=== PATIENT | male | born 1960 | race Caucasian/White ===

== ENCOUNTER 2016-10-29 15:53 | Emergency (ER) | payer OTHER ==
[~2016-10-29] VITALS: Ht 177.8 cm; Wt 84.4 kg
[~2016-10-29 15:53] MED LIST: /ONDA4TA PO; /WARF5TA PO; CARA1TAB2 PO; CIPR500T89 PO; LOPR50TA PO; METO50TA4 OR; PRIL20CA OR; VICOBULK PO
[2016-10-29 15:55] VITALS: BP 143/84
[2016-10-29] MEDS ORDERED: ATOR1TAB21 PO (16:02)
[2016-10-29] MEDS ORDERED: METO25TA74 PO (16:02)
== END 2016-10-29 16:48 | disposition home or self-care (01) ==
LOC: M ED 16:16
DX: H53.9 Unspecified visual disturbance (principal); I10 Essential (primary) hypertension

== ENCOUNTER 2017-12-19 07:31 | Day surgery (SDC) | payer OTHER ==
[2017-12-19] MEDS ORDERED: MIDAZOLAM INJ 2 MG/2 ML VIAL (J2250) As Ordered (07:32)
[2017-12-19] MEDS ORDERED: fentaNYL 100 MCG/2 ML INJECTION (J3010) As Ordered (07:32)
[2017-12-19] MEDS: PROPARACAINE 0.5% OPHTH SOL 15ML OD (08:00)
[2017-12-19] MEDS: OFLOXACIN 0.3 % (OCUFLOX) OPTH SOL 5ML OD (08:00)
[2017-12-19] MEDS: PHENYLEPHRINE 2.5% OPHTH SOL 2ML OD (08:00)
[2017-12-19] MEDS: TROPICAMIDE 1% OPHTH SOLN 2ML OD (08:00)
[2017-12-19] MEDS: POVIDONE-IODINE 5% OPHTH PREP SOL 30ML As Ordered (10:18)
[2017-12-19] MEDS: DUOVISC (0.50ML VISCOAT/0.55ML PROVISC) OPHTH KIT As Ordered (10:18)
[2017-12-19] MEDS: CEFUROXIME 1MG/0.1ML INTRACAMERAL INJ As Ordered (10:18)
[2017-12-19] MEDS: BALANCED SALT IRRIGATION SOLUTION 500ML BAG (FOR OR EYE MACHINE) As Ordered (10:18)
[2017-12-19] MEDS: LIDOCAINE 0.75%/EPINEPHRINE 0.025% IN BSS 1ML SYR INTRACAMERAL (OR ONLY) As Ordered (10:18)
== END 2017-12-19 11:05 | disposition home or self-care (01) ==
LOC: M SDC 07:31
DX: H25.11 Age-related nuclear cataract, right eye (principal); E78.00 Pure hypercholesterolemia, unspecified; I10 Essential (primary) hypertension; K21.9 Gastro-esophageal reflux disease without esophagitis; Z79.82 Long term (current) use of aspirin; Z79.899 Other long term (current) drug therapy
CPT/HCPCS: 66984

== ENCOUNTER → 2018-06-09 | Outpatient (CLI) | payer OTHER ==
[~2018-06-09] MED LIST changes: +ASPI1TAB PO; +ATOR1TAB21 PO; +METO1TAB32 PO
--- NOTE | 2018-06-09 16:57 | REP ---
KUB, ONE VIEW: HISTORY: Tenderness. A small amount of air is present in the intestine. There are no air fluid levels or dilated loops of intestine. There is no pneumoperitoneum. Surgical clips are present in the right upper quadrant and pelvis. IMPRESSION:Nonspecific bowel gas pattern. Electronically Signed by Jonathan Tee MD 06/09/2018 05:03 P
[2018-06-09 17:25] LABS: ALBUMIN 4.2 GM/DL (3.2-5.2); ALT/SGPT 59 U/L (12-78); AMYLASE 85 U/L (25-115); BILIRUBIN,TOTAL 0.3 MG/DL (0.2-1.0); BLOOD UREA NITROGEN 16 MG/DL (7-18); CALCIUM LEVEL 9.1 MG/DL (8.8-10.2); CARBON DIOXIDE LEVEL 27 MEQ/L (21-32); CHLORIDE LEVEL 103 MEQ/L (98-107); CREATININE FOR GFR 0.96 MG/DL (0.70-1.30); FREE T4 0.86 NG/DL (0.76-1.46); GLOMERULAR FILTRATION RATE > 60.0 (>49); GLUCOSE, FASTING 90 MG/DL (70-100); LIPASE 98 U/L (73-393); POTASSIUM SERUM 4.2 MEQ/L (3.5-5.1); SODIUM LEVEL 140 MEQ/L (136-145); TOTAL PROTEIN 7.5 GM/DL (6.4-8.2)
[2018-06-09 17:29] LABS: BASO # 0.1 10^3/uL (0.0-0.2); BASO % 0.7 % (0.0-1.0); EOS # 0.2 10^3/uL (0.0-0.50); EOS % 1.6 % (0.0-3.0); HEMATOCRIT 42.9 % (42.0-52.0); LYMPH # 1.8 10^3/uL (1.5-4.5); LYMPH % 18.7 % (24.0-44.0); MEAN CORPUSCULAR HEMOGLOBIN 28.3 pg (27.0-33.0); MEAN CORPUSCULAR HGB CONC 32.6 g/dl (32.0-36.5); MEAN CORPUSCULAR VOLUME 86.7 fl (80.0-96.0); MONO # 0.7 10^3/uL (0.0-0.8); MONO % 7.5 % (0.0-5.0); NEUTROPHILS # 6.7 10^3/uL (1.8-7.7); NEUTROPHILS % 71.3 % (36.0-66.0); PLATELET COUNT, AUTOMATED 267 10^3/uL (150-450); RED BLOOD COUNT 4.95 10^6/uL (4.30-6.10); WHITE BLOOD COUNT 9.4 10^3/uL (4.0-10.0)
== END ==
LOC: M WUC 11:57
PROVIDERS: ATTEND Physician Assistant
DX: R10.814 Left lower quadrant abdominal tenderness (principal)

== ENCOUNTER 2018-07-04 17:28 | Emergency (ER) | payer BC ==
[~2018-07-04] VITALS: Ht 177.8 cm; Wt 88.6 kg
[~2018-07-04 17:28] MED LIST changes: -CIPR-249 PO
[2018-07-04] MEDS ORDERED: NS 1,000 ML IV SCH (18:05)
[2018-07-04] MEDS ORDERED: ONDANSETRON 4MG/2ML VIAL (J2405) IV ONE (18:15)
[2018-07-04] MEDS ORDERED: GASTROGRAFIN SOLUTION 30ML (Q9963) As Ordered ONE (18:36)
[2018-07-04] MEDS: GASTROGRAFIN SOLUTION 30ML PO SCH ×2 (18:40→19:47)
[2018-07-04 18:45] LABS: BASO # 0.1 10^3/uL (0.0-0.2); BASO % 0.6 % (0.0-1.0); EOS # 0.3 10^3/uL (0.0-0.50); HEMATOCRIT 40.7 % (42.0-52.0); HEMOGLOBIN 13.4 g/dl (13.5-17.5); LYMPH # 2.3 10^3/uL (1.5-4.5); LYMPH % 16.7 % (24.0-44.0); MEAN CORPUSCULAR HEMOGLOBIN 28.3 pg (27.0-33.0); MEAN CORPUSCULAR HGB CONC 32.9 g/dl (32.0-36.5); MONO # 1.2 10^3/uL (0.0-0.8); MONO % 8.4 % (0.0-5.0); NEUTROPHILS # 9.9 10^3/uL (1.8-7.7); PLATELET COUNT, AUTOMATED 290 10^3/uL (150-450); RED BLOOD COUNT 4.73 10^6/uL (4.30-6.10); WHITE BLOOD COUNT 13.8 10^3/uL (4.0-10.0)
[2018-07-04 19:00] LABS: INR 0.93; PROTHROMBIN TIME 12.6 SECONDS (12.1-14.4)
[2018-07-04 19:16] LABS: ALT/SGPT 49 U/L (12-78); BLOOD UREA NITROGEN 15 MG/DL (7-18); CALCIUM LEVEL 8.5 MG/DL (8.8-10.2); CARBON DIOXIDE LEVEL 27 MEQ/L (21-32); CHLORIDE LEVEL 105 MEQ/L (98-107); CREATININE FOR GFR 0.87 MG/DL (0.70-1.30); GLOMERULAR FILTRATION RATE > 60.0 (>49); GLUCOSE, FASTING 91 MG/DL (70-100); POTASSIUM SERUM 4.2 MEQ/L (3.5-5.1); SODIUM LEVEL 138 MEQ/L (136-145)
[2018-07-04 19:17] LABS: BILIRUBIN,DIRECT < 0.1 MG/DL (0.0-0.2); BILIRUBIN,TOTAL 0.3 MG/DL (0.2-1.0); LIPASE 95 U/L (73-393); TOTAL PROTEIN 7.1 GM/DL (6.4-8.2)
[2018-07-04] MEDS ORDERED: ISOVUE-370 76% 100ML VIAL (Q9967) As Ordered ONE (19:58)
--- NOTE | 2018-07-04 20:47 | REPVR ---
EXAM: CT Abdomen and Pelvis With Contrast EXAM DATE/TIME: 07/04/2018 8:12 PM CLINICAL HISTORY: 58 years old, male; Pain; Abdominal pain; Acute; Additional info: Rlq stranding? TECHNIQUE: Axial computed tomography images of the abdomen and pelvis with intravenous contrast. All CT scans at this facility use at least one of these dose optimization techniques: automated exposure control; mA and/or kV adjustment per patient size (includes targeted exams where dose is matched to clinical indication); or iterative reconstruction. Coronal and sagittal reformatted images were created and reviewed. CONTRAST: 100 ml of ISOVUE 370 administered intravenously. COMPARISON: CT ABD PELVIS W/O CONTRAST 07/04/2018 11:08 AM FINDINGS: Lower thorax: No acute findings. ABDOMEN: Liver: There is a diffuse decrease in hepatic parenchymal density, consistent with fatty infiltration. Gallbladder and bile ducts: There has been a cholecystectomy. Pancreas: Normal. No ductal dilation. Spleen: Normal. No splenomegaly. Adrenals: Normal. No mass. Kidneys and ureters: Normal. No hydronephrosis. Stomach and bowel: Normal. No obstruction. No mucosal thickening. Appendix: Curvilinear density demonstrated within the appendix stable in appearance comparison to the prior noncontrast examination. Finding may represent calcification or inspissated oral contrast media. No inflammation. PELVIS: Bladder: Unremarkable as visualized. Reproductive: Unremarkable as visualized. ABDOMEN and PELVIS: Intraperitoneal space: Normal. No free air. No significant fluid collection. Bones/joints: No acute fracture. No dislocation. Soft tissues: Unremarkable. Vasculature: The aorta demonstrates mild atherosclerotic calcification. Lymph nodes: Normal. No enlarged lymph nodes. IMPRESSION: 1. There is a diffuse decrease in hepatic parenchymal density, consistent with fatty infiltration. 2. There has been a cholecystectomy. Electronically signed by: Flynn Avalos On 07/04/2018 20:46:44 PM
[2018-07-04] MEDS ORDERED: CIPR-249 PO (21:06)
[2018-07-04 21:15] VITALS: BP 134/69
== END 2018-07-04 21:24 | disposition home or self-care (01) ==
LOC: M ED 17:28
DX: R10.9 Unspecified abdominal pain (principal); I10 Essential (primary) hypertension; E78.5 Hyperlipidemia, unspecified; K21.9 Gastro-esophageal reflux disease without esophagitis; Z79.82 Long term (current) use of aspirin; Z79.899 Other long term (current) drug therapy
CPT/HCPCS: 74177; 80048; 80076; 81001; 83690; 85025; 85610; 96374; 99284; J2405; Q9967

== ENCOUNTER → 2018-07-04 | Outpatient (CLI) | payer BC ==
[~2018-07-04] MED LIST changes: +CIPR-249 PO
--- NOTE | 2018-07-04 11:57 | REP ---
CT ABDOMEN PELVIS WITHOUT IV OR ORAL CONTRAST: HISTORY: Flank pain. Microscopic hematuria. Comparison CT study is from August 12, 2012. CT FINDINGS: Digital preliminary kitchen hand radiograph demonstrates an unremarkable bowel gas pattern. There are clips in the right upper quadrant. The lung bases are clear on axial CT images. The liver and the spleen are normal in size homogeneous in texture. Gallbladder is surgically absent. No adrenal lesion is seen. No pancreatic abnormalities observed. There is no evidence of intrarenal nephrolithiasis. No hydronephrosis is seen. Vascular calcification is seen in the aorta which is ectatic but non-aneurysmal, AP dimension is 2.4 cm. There is some opaque ingested material in the lumen of the appendix. The appendix is 8-9 mm in diameter. There is very subtle haziness in the periappendiceal fat. No fluid collection or ascites is seen. The opaque content may be old CT barium. There are one or two dystrophic calcifications in the prostate gland. Urinary bladder is intact. No abdominal wall defect is seen. There is diverticulosis affecting the left colon mild in degree. No CT evidence of diverticulitis. IMPRESSION: Status post cholecystectomy. No urinary tract calculus or hydronephrosis seen. Slightly prominent appendix filled with opaque luminal content, question old CT barium. Faint periappendiceal stranding. Difficult to exclude early appendicitis. Electronically Signed by Marcos Cervantes MD 07/04/2018 03:35 P
== END ==
LOC: M RAD 10:53
PROVIDERS: ATTEND Student in an Organized Health Care Education/Training Program
DX: R31.29 Other microscopic hematuria (principal); R10.9 Unspecified abdominal pain

== ENCOUNTER → 2018-07-10 | Outpatient (CLI) | payer BC ==
[~2018-07-10] MED LIST changes: +CIPR-249 PO
== END ==
LOC: M SMT 13:55
PROVIDERS: ATTEND Nurse Practitioner Women's Health
DX: Z12.5 Encounter for screening for malignant neoplasm of prostate (principal)
CPT/HCPCS: 36415; G0103

== ENCOUNTER → 2018-09-04 | Outpatient (CLI) | payer BC ==
[~2018-09-04] MED LIST changes: -/ONDA4TA PO; -/WARF5TA PO; -ASPI1TAB PO; +ASPI81TA26 PO; +COUM1TAB17 PO; +ONDA-1 PO
--- NOTE | 2018-09-05 01:46 | REP ---
Clinical: Right-sided rib pain with prior fall Technique: Four views of the right hemithorax. Findings: Four views of the right hemithorax demonstrates no obvious acute rib fracture or pathology. Impression: Normal right rib series Electronically Signed by Westley James MD 09/05/2018 01:38 A
--- NOTE | 2018-09-05 02:30 | REP ---
Clinical: thoracic pain. Technique: AP, lateral, and swimmers views. Findings: Alignment and kyphosis is maintained. There is no evidence for acute fracture / compression injury or subluxation. Mild/moderate multilevel degenerative changes include endplate sclerosis with minimal disc space narrowing and marginal osteophyte formation. Impression: Mild multilevel degenerative changes. Electronically Signed by Westley James MD 09/05/2018 02:22 A
== END ==
LOC: M WUC 16:08
PROVIDERS: ATTEND Student in an Organized Health Care Education/Training Program
DX: M51.34 Other intervertebral disc degeneration, thoracic region (principal)

== ENCOUNTER 2018-09-16 15:26 | Emergency (ER) | payer BC ==
[~2018-09-16] VITALS: Ht 177.8 cm; Wt 88.2 kg
[2018-09-16] MEDS ORDERED: NS 500 ML IV ONE (16:00)
[2018-09-16] MEDS ORDERED: ASPIRIN 81 MG CHEW TABLET PO ONE (16:00)
[2018-09-16 16:14] LABS: BASO # 0.1 10^3/uL (0.0-0.2); BASO % 0.9 % (0.0-1.0); EOS # 0.3 10^3/uL (0.0-0.50); EOS % 3.4 % (0.0-3.0); HEMATOCRIT 39.8 % (42.0-52.0); HEMOGLOBIN 13.3 g/dl (13.5-17.5); LYMPH # 2.1 10^3/uL (1.5-4.5); LYMPH % 23.2 % (24.0-44.0); MEAN CORPUSCULAR HEMOGLOBIN 28.9 pg (27.0-33.0); MEAN CORPUSCULAR HGB CONC 33.4 g/dl (32.0-36.5); MEAN CORPUSCULAR VOLUME 86.3 fl (80.0-96.0); MONO # 0.7 10^3/uL (0.0-0.8); MONO % 7.9 % (0.0-5.0); NEUTROPHILS # 5.7 10^3/uL (1.8-7.7); NEUTROPHILS % 64.2 % (36.0-66.0); PLATELET COUNT, AUTOMATED 264 10^3/uL (150-450); RED BLOOD COUNT 4.61 10^6/uL (4.30-6.10); WHITE BLOOD COUNT 8.9 10^3/uL (4.0-10.0)
[2018-09-16 17:29] LABS: ALBUMIN 3.7 GM/DL (3.2-5.2); ALT/SGPT 49 U/L (12-78); BILIRUBIN,DIRECT 0.1 MG/DL (0.0-0.2); BILIRUBIN,TOTAL 0.2 MG/DL (0.2-1.0); BLOOD UREA NITROGEN 17 MG/DL (7-18); CALCIUM LEVEL 8.5 MG/DL (8.8-10.2); CARBON DIOXIDE LEVEL 27 MEQ/L (21-32); CHLORIDE LEVEL 107 MEQ/L (98-107); CPK CREATINE PHOSPHOKINASE 147 U/L (39-308); CREATININE FOR GFR 1.02 MG/DL (0.70-1.30); FREE T4 0.88 NG/DL (0.76-1.46); GLOMERULAR FILTRATION RATE > 60.0 (>49); GLUCOSE, FASTING 114 MG/DL (70-100); LIPASE 120 U/L (73-393); SODIUM LEVEL 141 MEQ/L (136-145); TOTAL PROTEIN 7.4 GM/DL (6.4-8.2); TROPONIN I < 0.02 NG/ML (< 0.10)
[2018-09-16] MEDS ORDERED: ISOVUE-370 76% 100ML VIAL (Q9967) As Ordered ONE (17:40)
--- NOTE | 2018-09-16 18:26 | REP ---
CHEST: Single view. There is no evidence of acute infiltrate. No pleural effusion is seen. The heart is normal in size. The mediastinal silhouette is unremarkable. The visualized osseous structures are intact. IMPRESSION: No acute pulmonary disease. Electronically Signed by Jose D Duff MD 09/17/2018 10:32 A
[2018-09-16 19:00] VITALS: BP 143/69
--- NOTE | 2018-09-16 23:23 | ECGEPIP ---
Stationary ECG Study 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
--- NOTE | 2018-09-17 08:29 | REP ---
CT pulmonary angiogram: With IV contrast. History: Pain. Rule out pulmonary embolus. Comparison studies: Comparison is made with today's chest x-ray. Contrast dose: 75 ML of Isovue [address] technique: Helical scanning is acquired and overlapping 1.5 mm and contiguous 3 mm axial images are reformatted. In addition, maximum intensity projection and multiplanar re-formation images are generated in sagittal and coronal imaging projections. CT pulmonary angiographic findings: There is good opacification of the pulmonary arterial tree. There is no CT evidence of pulmonary embolism. The thoracic aorta enhances homogeneously and is normal in course and caliber. No aneurysm or dissection is appreciated. There is a small amount of left coronary artery vascular calcification and aortic calcification. No pleural or pericardial effusion is seen. No hilar or mediastinal mass or adenopathy is observed. Maximal intensity projection images show no vessel cutoff or filling defect. No significant pulmonary nodule or mass lesion is seen. No bony destructive lesion is appreciated. There are clips in right upper quadrant post cholecystectomy. The no adrenal lesion is observed. Impression: No CT evidence of pulmonary embolus. No active cardiopulmonary disease. Electronically Signed by Marcos Cervantes MD 09/17/2018 09:17 A
== END 2018-09-16 19:15 | disposition home or self-care (01) ==
LOC: M ED 15:26
DX: S23.41XA Sprain of ribs, initial encounter (principal); X58.XXXA Exposure to other specified factors, initial encounter; Y92.89 Other specified places as the place of occurrence of the external cause; I10 Essential (primary) hypertension; E78.5 Hyperlipidemia, unspecified; Z79.899 Other long term (current) drug therapy; Z79.82 Long term (current) use of aspirin; Z87.891 Personal history of nicotine dependence
CPT/HCPCS: 36415; 71045; 71275; 80048; 80076; 82550; 82553; 83690; 84439; 84443; 84484; 85025; 93005; 93041; 94760; 96360; 99285; Q9967

== ENCOUNTER → 2018-09-16 | Outpatient (CLI) | payer BC ==
--- NOTE | 2018-09-16 12:39 | REP ---
Chest two views HISTORY: Chest pain Comparison: 08/15/2012 The lungs are clear. The heart is normal in size. The pulmonary vasculature is normal in appearance. The bony structure is intact. IMPRESSION: No acute disease. Electronically Signed by Jonathan Tee MD 09/16/2018 12:31 P
[2018-09-16 13:42] LABS: BASO # 0.1 10^3/uL (0.0-0.2); BASO % 0.8 % (0.0-1.0); EOS # 0.2 10^3/uL (0.0-0.50); EOS % 2.9 % (0.0-3.0); HEMATOCRIT 41.8 % (42.0-52.0); HEMOGLOBIN 13.4 g/dl (13.5-17.5); LYMPH # 1.6 10^3/uL (1.5-4.5); LYMPH % 18.8 % (24.0-44.0); MEAN CORPUSCULAR HEMOGLOBIN 27.9 pg (27.0-33.0); MEAN CORPUSCULAR HGB CONC 32.1 g/dl (32.0-36.5); MEAN CORPUSCULAR VOLUME 87.1 fl (80.0-96.0); MONO # 0.7 10^3/uL (0.0-0.8); MONO % 7.8 % (0.0-5.0); NEUTROPHILS # 5.8 10^3/uL (1.8-7.7); NEUTROPHILS % 69.3 % (36.0-66.0); PLATELET COUNT, AUTOMATED 251 10^3/uL (150-450); WHITE BLOOD COUNT 8.4 10^3/uL (4.0-10.0)
[2018-09-16 14:09] LABS: ALBUMIN 4.1 GM/DL (3.2-5.2); ALT/SGPT 48 U/L (12-78); BILIRUBIN,TOTAL 0.3 MG/DL (0.2-1.0); BLOOD UREA NITROGEN 15 MG/DL (7-18); CARBON DIOXIDE LEVEL 28 MEQ/L (21-32); CHLORIDE LEVEL 107 MEQ/L (98-107); CPK CREATINE PHOSPHOKINASE 145 U/L (39-308); CREATININE FOR GFR 0.99 MG/DL (0.70-1.30); GLOMERULAR FILTRATION RATE > 60.0 (>49); GLUCOSE, FASTING 86 MG/DL (70-100); MB/CK RELATIVE INDEX 3.86 (< OR =4); POTASSIUM SERUM 4.5 MEQ/L (3.5-5.1); SODIUM LEVEL 139 MEQ/L (136-145); TROPONIN I < 0.02 NG/ML (< 0.10)
== END ==
LOC: M WUC 11:35
PROVIDERS: ATTEND Physician Assistant
DX: R07.9 Chest pain, unspecified (principal)

== ENCOUNTER → 2018-10-24 | Outpatient (REF) | payer BC | LOC: M SFHCPLAZ 11:23 | PROVIDERS: ATTEND Family Medicine | DX: E78.5 Hyperlipidemia, unspecified (principal); Z53.9 Procedure and treatment not carried out, unspecified reason ==

== ENCOUNTER → 2019-11-13 | Outpatient (REF) | payer BC ==
[2019-11-13 18:15] LABS: HEMOGLOBIN A1c 6.6 %
== END ==
LOC: M SFHCPLAZ 13:22
DX: R73.03 Prediabetes (principal)

== ENCOUNTER → 2019-12-14 | Outpatient (REF) | payer BC ==
[~2019-12-14] MED LIST changes: +METO1TAB7 PO; +NEXI20CA PO; +REST0.05 OU; +TRAV04OPD OU
== END ==
LOC: M LAB REF 18:25
PROVIDERS: ATTEND Physician Assistant
DX: L81.4 Other melanin hyperpigmentation (principal); L83 Acanthosis nigricans

== ENCOUNTER → 2020-03-28 | Outpatient (CLI) | payer BC ==
[~2020-03-28] MED LIST changes: -METO1TAB7 PO; -NEXI20CA PO; -REST0.05 OU; -TRAV04OPD OU
[2020-03-28 11:18] LABS: HEMATOCRIT 43.1 % (42.0-52.0); MEAN CORPUSCULAR HEMOGLOBIN 28.3 pg (27.0-33.0); MEAN CORPUSCULAR HGB CONC 32.5 g/dl (32.0-36.5); MEAN CORPUSCULAR VOLUME 87.1 fl (80.0-96.0); PLATELET COUNT, AUTOMATED 241 10^3/uL (150-450); RED BLOOD COUNT 4.95 10^6/uL (4.30-6.10); WHITE BLOOD COUNT 7.5 10^3/uL (4.0-10.0)
[2020-03-28 11:29] LABS: INR 0.96
[2020-03-28 11:40] LABS: ERYTHROCYTE SEDIMENTATION RATE 9 mm/hr (0-20)
[2020-03-28 11:49] LABS: ALBUMIN 4.2 GM/DL (3.2-5.2); ALT/SGPT 36 U/L (12-78); BILIRUBIN,TOTAL 0.4 MG/DL (0.2-1.0); BLOOD UREA NITROGEN 15 MG/DL (7-18); CALCIUM LEVEL 9.2 MG/DL (8.8-10.2); CARBON DIOXIDE LEVEL 28 MEQ/L (21-32); CHLORIDE LEVEL 105 MEQ/L (98-107); CREATININE FOR GFR 1.07 MG/DL (0.70-1.30); GLOMERULAR FILTRATION RATE > 60.0 (>49); GLUCOSE, FASTING 100 MG/DL (70-100); POTASSIUM SERUM 4.4 MEQ/L (3.5-5.1); SODIUM LEVEL 137 MEQ/L (136-145); TOTAL PROTEIN 7.4 GM/DL (6.4-8.2)
--- NOTE | 2020-03-28 13:23 | REP ---
INDICATION: PRE-SURGICAL CLEARANCE COMPARISON: 09/16/2018. TECHNIQUE: PA/Lateral FINDINGS: Lungs: Clear, no infiltrate. Heart: Normal in size. Mediastinum: There is mild calcification of the thoracic aorta. The mediastinal silhouette is unchanged. Pleural angles: Unremarkable.. Bones and soft tissues: There are mild degenerative changes of the spine without compression deformity. IMPRESSION: No acute pulmonary disease. <Electronically signed by Jose D Duff > 03/28/20 [id number]
--- NOTE | 2020-03-28 21:17 | ECGEPIP ---
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
== END ==
LOC: M LAB 10:48
PROVIDERS: ATTEND Orthopaedic Surgery
DX: Z01.818 Encounter for other preprocedural examination (principal); M17.12 Unilateral primary osteoarthritis, left knee

== ENCOUNTER → 2020-04-08 | Outpatient (CLI) | payer BC ==
[~2020-04-08] MED LIST changes: +METO1TAB7 PO; +NEXI20CA PO; +REST0.05 OU; +TRAV04OPD OU
== END ==
LOC: M LABSMTC 09:51
PROVIDERS: ATTEND Anesthesiology
DX: Z01.812 Encounter for preprocedural laboratory examination (principal); Z20.828 Contact with and (suspected) exposure to other viral communicable diseases

== ENCOUNTER 2020-04-13 07:10 | Inpatient (IN) | payer BC ==
--- NOTE | 2020-04-11 08:15 | HPE ---
DATE OF ANTICIPATED ADMISSION: 04/13/2020 ATTENDING: Dr. Koko Renee CHIEF COMPLAINT: Osteoarthritis, left knee. HISTORY: A 59-year-old male patient with progressively worsening left pain and stiffness. Failed to improve with conservative management. He has elected for surgery for his continued symptoms. He is being consented by Dr. Renee for a left total knee arthroplasty. X-rays of the knee notable for end-stage degenerative changes on the left knee. Medical optimization not present for review. CURRENT MEDICATIONS: - Prilosec 20 mg one tablet once per day - metoprolol extended release 50 mg one tablet once per day - atorvastatin 20 mg one tablet once per day - aspirin 81 mg once tablet once per day. Discontinue that 2 days ago. He was counseled about the use of nonsteroidal anti-inflammatory drugs (NSAIDs) and to discontinue all NSAIDs 5 days prior to surgery, to include aspirin. We did explain to him what NSAIDs are. DRUG ALLERGIES: No known drug allergies. MEDICAL CONDITIONS: 1. Symptomatic osteoarthritis, left knee. 2. Hypertension. 3. Elevated cholesterol. 4. Gastric reflux disease. SURGICAL HISTORY: Notable for: 1. Cataract surgery. 2. LASIK surgery. 3. Gallbladder removed. 4. Colonoscopy. FAMILY HISTORY: Arthritis, diabetes, hypertension, elevated cholesterol, heart disease, and cancer. REVIEW OF SYSTEMS: Denies fever or chills. Denies chest pain, shortness of breath, or cough. Denies difficulty breathing. Denies abdominal pain. Denies nausea or vomiting. Denies exposure to COVID-19. He has persistent pain with weightbearing activities in his left knee. SOCIAL HISTORY: He does not smoke. He rarely uses alcohol. He continues to be employed with the [employer]. PHYSICAL EXAMINATION: Today reveals an alert, well-nourished, well-developed male patient. He ambulates with a slight limp in gait favoring the left side. Exam of the left knee reveals skin to be intact. No erythema, edema, or ecchymosis. Tenderness mainly medially. Patella grind is irritable. The calf is soft, nontender to palpation. He can sensate light touch on exam. No irritability with hip range of motion. Neck is supple without adenopathy or jugular venous distention (JVD). Lungs are clear to auscultation without rales or wheeze. Heart: Regular rate and rhythm. Abdomen: Bowel sounds are present. Current vital signs: Height 68 inches, weight 185 pounds, temperature 96.0, blood pressure 130/82, pulse 70, respirations 10. LABORATORY DATA: Protime 13.0, INR 0.96. WBC count 7.5, RBC count 4.9, hemoglobin 14.0, hematocrit 43.1, sedimentation rate of 9. Chest x-ray: No acute cardiopulmonary disease process noted. EKG has sinus rhythm. IMPRESSION: Symptomatic osteoarthritis of the left knee. PLAN: He has been consented by Dr. Renee for a left total knee arthroplasty. We discussed his pre and postoperative instructions, to include nothing by mouth after midnight. He understands what nothing by mouth after midnight means. We discussed the use of NSAIDs and discontinuing those 5 days prior to surgery to include aspirin. He knows to be on time for the procedure. We discussed his COVID restrictions. He should be self-quarantined at this point. All his questions were answered. CLARA
[2020-04-13] VITALS (9 sets, daily range): BP systolic 144–168; BP diastolic 73–87; O2SAT 94
[~2020-04-13] VITALS: Ht 177.8 cm; Wt 83.0 kg
[2020-04-13] MEDS ORDERED: LR 1,000 ML IV ONE (07:30)
[2020-04-13] MEDS ORDERED: ACETAMINOPHEN 500 MG TAB PO ONE (07:30)
[2020-04-13] MEDS ORDERED: ceFAZolin SOD 2 GM in IV 1 EA IV ONE (07:30)
[2020-04-13] MEDS ORDERED: MIDAZOLAM INJ 2MG/2ML VIAL (J2250 PER 1MG) As Ordered ONE ×2 (08:07→08:22)
[2020-04-13] MEDS ORDERED: fentaNYL 100 MCG/2 ML INJECTION (J3010) As Ordered ONE ×2 (08:07→08:22)
[2020-04-13] MEDS ORDERED: dexameTHASONE 4 MG/ML 1ML VIAL (J1100 PER 1MG) As Ordered ONE (08:12)
[2020-04-13] MEDS ORDERED: BUPIVACAINE HCL 0.25% 10ML VIAL As Ordered ONE (09:12)
[2020-04-13] MEDS ORDERED: TRANEXAMIC ACID 100 MG/ML 10ML VIAL As Ordered ONE (09:12)
[2020-04-13] MEDS ORDERED: BUPIVACAINE LIPOSOME/PF 1.3% 20ML VIAL (13.3MG/ML)(EXPAREL)(C9290 PER1MG) As Ordered ONE (09:13)
[2020-04-13] MEDS ORDERED: ceFAZolin 1GM VIAL (J0690 PER 500MG) As Ordered ONE (09:13)
[2020-04-13] MEDS ORDERED: EPINEPHrine INJ 1 MG/ML 1ML AMP As Ordered ONE (09:13)
[2020-04-13] MEDS ORDERED: MIDAZOLAM INJ 2MG/2ML VIAL (J2250 PER 1MG) IV PRN (10:00)
[2020-04-13] MEDS ORDERED: LIDOCAINE 1% MDV 20ML VIAL XX ONE (10:00)
[2020-04-13] MEDS ORDERED: dexameTHASONE 10MG/1ML VIAL PRES.FREE (J1100 PER 1MG) XX ONE (10:00)
[2020-04-13] MEDS ORDERED: ROPIvacaine 0.5% 30ML INJECTION (J2795 PER 1MG) XX ONE (10:00)
[2020-04-13] MEDS ORDERED: fentaNYL 100 MCG/2 ML INJECTION (J3010) IV PRN ×2 (10:00→12:00)
[2020-04-13] MEDS ORDERED: ONDANSETRON 4MG/2ML VIAL As Ordered ONE (10:27)
[2020-04-13] MEDS ORDERED: METOCLOPRAMIDE INJ 10MG/2ML VIAL (J2765 PER 1) As Ordered ONE (10:27)
[2020-04-13] MEDS ORDERED: propofoL 500 MG/50 ML VIAL As Ordered ONE (10:29)
[2020-04-13] MEDS ORDERED: LR 1,000 ML IV SCH (12:00)
[2020-04-13] MEDS ORDERED: ONDANSETRON 4MG/2ML VIAL IV PRN (12:00)
[2020-04-13] MEDS ORDERED: HYDROMORPHONE HCL 0.5 MG/ 0.5 ML SYRINGE (J1170 PER 1) IV PRN (12:00)
[2020-04-13] MEDS ORDERED: PERCOCET 5MG/325MG TAB PO PRN (12:15)
[2020-04-13] MEDS ORDERED: ACETAMINOPHEN TAB 650MG DOSE (2X325MG) PO PRN (12:15)
[2020-04-13] MEDS ORDERED: MORPHINE 2 MG/ML 1ML VIAL (J2270) IV PRN (12:15)
[2020-04-13] MEDS ORDERED: MORPHINE 4 MG/ML 1ML VIAL/SYRINGE (J2270) IV PRN (12:15)
--- NOTE | 2020-04-13 12:18 | REP ---
INDICATION: POST OP IN PACU COMPARISON: None. TECHNIQUE: Two views left knee performed. FINDINGS: There is placement of a total knee prosthesis which appears to be in good position. The osseous structures are intact and well aligned. There are anterior skin ophelia present. IMPRESSION: Left total hip prosthesis in good position. <Electronically signed by Jose D Duff > 04/13/20 [id number]
[2020-04-13] MEDS: oxyCODONE 5MG TAB PO PRN ×2 (12:42→13:16)
[2020-04-13] MEDS: LR 1,000 ML IV SCH ×2 (15:11→17:53)
--- NOTE | 2020-04-13 17:42 | CR.PDOC ---
General Date of Consultation: Apr 13, 2020 Consultation REASON FOR CONSULTATION/CHIEF COMPLAINT: Medical management HISTORY OF PRESENT ILLNESS: 59-year-old male with history of hypertension, dyslipidemia, osteoarthritis of the left knee reflux disease, cataract surgery, cholecystectomy, Lasix surgery, presented for elective left knee replacement due to worsening pain with limitation of ADLs, failed on outpatient conservative management. Patient othe rwise denied any history of coronary artery disease, VT, CHF, diabetes, CVA in the past. . Postoperatively, patient has had no complications. Pain is well controlled on current medical medication. . He denies any fever, chills, weight gain, weight loss, rhinorrhea, sore throat, ear pain, ear discharge, shortness of breath, chest pain, pressure, tightness, lightheadedness, dizziness, near syncope, nausea, vomiting, diarrhea, abdominal pain, bright red blood per rectum, melena, black tarry stools, dysuria, urgency, frequency, flank pain, bilateral upper or lower extremity weakness, paresthesias, polydipsia, polyphagia. He otherwise has no other medical complaints. Hospitalist was asked to consult for medical management. ALLERGIES: Please see below. HOME MEDICATIONS: Please see below. PAST MEDICAL HISTORY: Hypertension, dyslipidemia, glaucoma, osteoarthritis of the left knee. Gastro esophageal reflux disease PAST SURGICAL HISTORY: Cholecystectomy, cataract surgery, Lasix surgery, colonoscopy HOME MEDICATIONS:SEE BELOW ALLERGIES: See below FAMILY HISTORY: Father age 74 CVA. Mother still alive SOCIAL HISTORY: Patient lives with his in a two-story home, has 2 steps going into the home with wailing. He will be staying on the first floor where there is a bathroom and the bed. Patient previously smoked cigarettes but quit 25 years ago. He previously smoked a pack a day for about 20 years. He has occasional alcohol, maybe once a week with beer. 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 Denies recreational drug use or history of alcohol abuse. He is a full code. Healthcare proxy is his REVIEW OF SYSTEMS: Negative 10 point review of system aside from positive findings on HPI PHYSICAL EXAMINATION: VITAL SIGNS: Please see below. GENERAL APPEARANCE: Awake, alert, oriented 3. No respiratory distress or conversational dyspnea. No pallor or icterus HEENT: Slight conjunctival injection. Dry mucous membranes. No JVD or thyromegaly. No jaundice. No cervical lymphadenopathy. No stridor. An exam RESPIRATORY: Clear to auscultation. Wheezing, rales or rhonchi. AP diameter is normal. No adventitious breath sounds. CARDIOVASCULAR: S1, S2, regular rate, rhythm. Nondisplaced point of maximal impulse ABDOMEN: Positive bowel sounds, soft, nontender, nondistended. No rebound or guarding. No tetanus splenomegaly. No abdominal bruit noted EXTREMITIES: Left knee postop bandaged bilateral lower extremities with SCD. His skin color is pink, extremities are warm, dry, well perfused. No pitting edema. No clubbing, no cyanosis LABORATORY DATA: Please see below. Imaging study. X-ray of the left knee, pending official report ASSESSMENT/PLAN: 59-year-old male with history of hypertension, dyslipidemia, osteoarthritis of the left knee reflux disease, cataract surgery, cholecystectomy, Lasix surgery, presented for elective left knee replacement due to worsening pain with limi tation of ADLs, failed on outpatient conservative management. Patient otherwise denied any history of coronary artery disease, VT, CHF, diabetes, CVA in the past. . Postoperatively, patient has had no complications. Pain is well controlled on current medical medication. . He denies any fever, chills, weight gain, weight loss, rhinorrhea, sore throat, ear pain, ear discharge, shortness of breath, chest pain, pressure, tightness, lightheadedness, dizziness, near syncope, nausea, vomiting, diarrhea, abdominal pain, bright red blood per rectum, melena, black tarry stools, dysuria, urgency, frequency, flank pain, bilateral upper or lower extremity weakness, paresthesias, polydipsia, polyphagia. He otherwise has no other medical complaints. Hospitalist was asked to consult for medical management. Postoperative left total knee arthroplasty due to symptomatic osteoarthritis - failed on outpatient conservative management. Postoperative management including antibiotics, DVT prophylaxis, pain control and bowel regimen per primary team. Orthopedic surgery. Physical therapy consulted. Hypertension -currently controlled. Resume metoprolol Glaucoma -On Travatan Dyslipidemia -Check fasting lipid profile and continue home medications Gastroesophageal reflux disease -Chronic Diet 2 g sodium, low-fat, low-cholesterol DVT prophylaxis Full code Vital Signs/I&O Vital Signs Date Time Temp Pulse Resp B/P (MAP) Pulse Ox O2 Delivery O2 Flow Rate FiO2 04/13/20 11:49 97.6 60 16 115/63 (80) 97 Room Air 04/13/20 09:40 3 Allergies Coded Allergies: No Known Allergies (Unverified , 08/12/12) Home Medications Scheduled Aspirin (Aspirin EC) 81 Mg Tab, 81 MG PO DAILY, #30 (Reported) Atorvastatin Calcium (Atorvastatin Calcium) 20 Mg Tablet, 20 MG PO DAILY, (Reported) Esomeprazole Magnesium (Nexium) 20 Mg Capsule.dr, 20 MG PO DAILY, (Reported) Metoprolol Succinate (Metoprolol Succinate) 50 Mg Tab.er.24h, 50 MG PO DAILY, (Reported) Travoprost (Travatan Z) 0.004% 2.5ML Drops, 1 DROP OU QPM, #3 (Reported) Scheduled PRN Cyclosporine (Restasis) 0.05% Droperette, 1 DROP OU PRN PRN for DRY EYES for 30 Days, #60 (Reported) DYLAN SIDDIQI MD Apr 13, 2020 12:07
[2020-04-13] MEDS: ONDANSETRON 4MG/2ML VIAL IV PRN (17:53)
[2020-04-13] MEDS: ceFAZolin SOD 2 GM in IV 1 EA IV SCH (17:53)
[2020-04-13] MEDS: ASPIRIN 81 MG ENTERIC TAB PO SCH (19:46)
[2020-04-13] MEDS: LATANOPROST 0.005% OPHTH SOLN 2.5 ML OU SCH (21:00)
[2020-04-13] MEDS: PERCOCET 5MG/325MG TAB PO PRN (22:13)
[2020-04-14] MEDS: ceFAZolin SOD 2 GM in IV 1 EA IV SCH ×2 (01:31→09:01)
[2020-04-14 02:00] VITALS: BP 125/66
[2020-04-14] MEDS ORDERED: MAALOX 30 ML SUSP *UDC PO ONE (02:45)
[2020-04-14 06:00] VITALS: BP 121/69
[2020-04-14 06:10] LABS: HEMOGLOBIN 11.7 g/dl (13.5-17.5); MEAN CORPUSCULAR HEMOGLOBIN 28.5 pg (27.0-33.0); MEAN CORPUSCULAR HGB CONC 33.4 g/dl (32.0-36.5); MEAN CORPUSCULAR VOLUME 85.2 fl (80.0-96.0); PLATELET COUNT, AUTOMATED 224 10^3/uL (150-450); RED BLOOD COUNT 4.11 10^6/uL (4.30-6.10); WHITE BLOOD COUNT 16.7 10^3/uL (4.0-10.0)
[2020-04-14] MEDS ORDERED: PERC5TAB12 PO (06:32)
[2020-04-14] MEDS ORDERED: ASPI81TA26 PO (06:32)
[2020-04-14 06:42] LABS: ALBUMIN 3.2 GM/DL (3.2-5.2); ALT/SGPT 68 U/L (12-78); BILIRUBIN,TOTAL 0.4 MG/DL (0.2-1.0); BLOOD UREA NITROGEN 12 MG/DL (7-18); CALCIUM LEVEL 8.7 MG/DL (8.8-10.2); CARBON DIOXIDE LEVEL 25 MEQ/L (21-32); CHLORIDE LEVEL 106 MEQ/L (98-107); CHOLESTEROL LEVEL 112 MG/DL (<200); CHOLESTEROL RISK RATIO 2.434 (<5); CREATININE FOR GFR 0.87 MG/DL (0.70-1.30); GLOMERULAR FILTRATION RATE > 60.0 (>49); GLUCOSE, FASTING 117 MG/DL (70-100); HDL CHOLESTEROL 46 MG/DL (>40); LDL CHOLESTEROL 50 MG/DL (<100); MAGNESIUM LEVEL 1.6 MG/DL (1.8-2.4); NON-HDL-C 66 MG/DL; POTASSIUM SERUM 3.6 MEQ/L (3.5-5.1); SODIUM LEVEL 137 MEQ/L (136-145); TOTAL PROTEIN 6.5 GM/DL (6.4-8.2); TRIGLYCERIDES LEVEL 79 MG/DL (<150)
--- NOTE | 2020-04-14 07:04 | RO ---
DATE OF OPERATION: 04/13/2020 PREOPERATIVE DIAGNOSIS: Left knee degenerative arthritis. POSTOPERATIVE DIAGNOSIS: Left knee degenerative arthritis. PROCEDURE: Left total knee replacement using a size 6 Attune cruciate-retaining femoral component, size 6 tibial tray, 38 mm polyethylene button with 6 mm rotating platform polyethylene insert, all components were cemented. Prosthesis was made by [employer]. SURGEON: Malik Renee MD PLATE MAKER ZINC: Genny Wilkes ANESTHESIA: Spinal with left femoral nerve block. COMPLICATIONS: None. SPECIMENS: Joint surface. ESTIMATED BLOOD LOSS: 20 mL. PROCEDURE: Antibiotics were given intravenously preoperatively. A successful left femoral nerve block and then a spinal anesthetic were induced. The tourniquet was placed on the left upper thigh and not inflated. The left lower extremity was carefully prepped and draped in the usual sterile fashion and elevated. After an appropriate time out the tourniquet was inflated to 250 mmHg for 57 minutes. A longitudinal incision was made for a medial parapatellar approach to the knee. Bovie cautery was used to coagulate crossing vessels. Subperiosteal dissection was performed around the proximal medial and lateral tibial plateaus. The patella was everted and knee flexed, ACL was debrided. Drill was placed down the center of the femoral canal, followed by the intramedullary benito. The distal femoral cutting jig set at 9 mm resection level at 5 degrees valgus for a left knee. The block was pinned into position. Distal femoral cut was performed. AP sizing jig measured for a size 6 femoral component. 3 degrees of external rotation were dialed in, the pins applied and then the four-in-one block applied. The anterior, posterior and chamfer cuts were performed taking great care to protect the surrounding soft tissues. We then placed the jig for the notchplasty and performed notchplasty and checked to be sure it was flush. We then exposed the proximal tibia and used extramedullary tibial jig to estimate being parallel to the mechanical axis of the tibia referencing off the medial tibial condyle at 4 mm resection level. The block was pinned into position, the proximal tibial osteotomy was performed, again taking great care to protect the surrounding soft tissues. We then placed lamina bursar laterally and performed completion medial meniscectomy and debridement of the posterior and medial osteophytes and then placed the lamina bursar medially and performed a completion lateral meniscectomy and debridement of the posterolateral osteophytes. The spacer blocks were applied. He was a bit snug medially. Thus I did do a more posteromedial release and made sure that I removed all the medial tibial osteophytes and then the 6 mm spacer fit better. We then exposed proximal tibia and sized for #6 tibial tray which was pinned into position, followed with reamer and broach, followed with at trial 6 mm polyethylene and the trial femoral component applied and we brought the knee into flexion and extension. It was noted that PCL quite tight, there was quite a bit of significant rollback. Thus I did release some of the PCL with Bovie cautery and Mcneal elevator and this markedly improved his ability to flex without excess tightness. He still remained stable to posterior drawer at 90 degrees of flexion. We then brought the knee into extension, everted the patella and performed patellar osteotomy, sized for #38 button. Lug hole drilled, trial was placed and the patellofemoral tracking was anatomic. Thus at this point I drilled the lug holes for the femur and removed all the trial components. I then copiously pulse lavaged irrigated out the knee joint as I did several times throughout the operation. Exparel was then placed in the subperiosteal tissues around the distal femur and the proximal tibia as my assistant loan processor Genny Wilkes mixed the cement on the back table. She was also critical to the success of this difficult procedure by helping to manipulate the knee, apply appropriate soft tissue retraction, helped to prepare the patient, helped to close the wound, helped to mix cement, amongst many other tasks to allow me to perform the operation smoothly, efficiently, and safely. Once all of the bony surfaces were thoroughly dried and prepared I cemented the tibial tray, removed excess cement and then placed the polyethylene and cemented the femoral component, removed excess cement, brought the knee in extension, cemented the patellar button, removed excess cement, held the knee in full extension with a patellar clamp until the cement hardened. As we were waiting this, we continued to pulsatile lavage irrigate out the knee joint once again. I did check the notch to be sure there was no excess cement extruding through the center of the femoral hole. I then placed Tranexamic acid in the knee joint and began closing the arthrotomy with two #1 PDS sutures at the apex and one at the medial parapatellar area and then double-armed #1 Stratafix running used to close the capsule. The tourniquet was released. We copiously pulsatile lavage irrigated out the deep soft tissues, closed them with interrupted 2-0 PDS suture. The skin was closed with ophelia, covered by an Optifoam and dry sterile bulky dressing. He was then transferred to the recovery room in stable condition. There were no intraoperative complications. CLARA
--- NOTE | 2020-04-14 07:22 | IPNPDOC ---
Date Seen The patient was seen on 04/14/20. Progress Note SUBJECTIVE: C/P8/10 pain in left knee, took a couple of steps last night with RN assistance and a walker, with some difficulty. requesting iv to take the edge off the pain and 2 percocets this morning. no sob, cough, or fever overnight. OBJECTIVE: PHYSICAL EXAMINATION: VITAL SIGNS: Please see below. GENERAL APPEARANCE: Awake, alert, oriented 3. supine. No respiratory distress or conversational dyspnea. No pallor or icterus HEENT: Slight conjunctival injection. moist mucous membranes. No JVD or thyromegaly. No jaundice. No cervical lymphadenopathy. No stridor. An exam RESPIRATORY: Clear to auscultation. AEBE no Wheezing, rales or rhonchi. AP diameter is normal. No adventitious breath sounds. CARDIOVASCULAR: S1, S2, regular rate, rhythm. Nondisplaced point of maximal impulse no carotid bruits ABDOMEN: Positive bowel sounds, soft, nontender, nondistended. No rebound or guarding. No tetanus splenomegaly. No abdominal bruit noted EXTREMITIES: Left knee postop bandaged bilateral lower extremities with SCD. His skin color is pink, extremities are warm, dry, well perfused. No pitting edema. No clubbing, no cyanosis LABORATORY DATA: Please see below. Imaging study. X-ray of the left knee, pending official report ASSESSMENT/PLAN: 59-year-old male with history of hypertension, dyslipidemia, osteoarthritis of the left knee reflux disease, cataract surgery, cholecystectomy, Lasix surgery, presented for elective left knee replacement due to worsening pain with limitation of ADLs, failed on outpatient conservative management. Patient otherwise denied any history of coronary artery disease, [place], CHF, diabetes, CVA in the past. . Postoperatively, patient has had no complications. Pain is well controlled on current medical medication. . He denies any fever, chills, weight gain, weight loss, rhinorrhea, sore throat, ear pain, ear discharge, shortness of breath, chest pain, pressure, tightness, lightheadedness, dizziness, near syncope, nausea, vomiting, diarrhea, abdominal pain, bright red blood per rectum, melena, black tarry stools, dysuria, urgency, frequency, flank pain, bilateral upper or lower extremity weakness, paresthesias, polydipsia, polyphagia. He otherwise has no other medical complaints. Hospitalist was asked to consult for medical management. Postoperative left total knee arthroplasty due to symptomatic osteoarthritis - requesting both iv and po meds this morning due to severe pain, but says he will try the best he can to work with physical therapy to go home soon. no fever sob overnight. Postoperative management including antibiotics, DVT prophylaxis, pain control and bowel regimen per primary team. Orthopedic surgery. Physical therapy consulted. Hypertension -currently controlled. Resumed metoprolol Glaucoma -On Travatan Dyslipidemia -normal lipid profile and continued home medications Gastroesophageal reflux disease -Chronic Diet 2 g sodium, low-fat, low-cholesterol DVT prophylaxis Full code VS, I&O, 24H, Fishbone Vital Signs/I&O Vital Signs Date Time Temp Pulse Resp B/P (MAP) Pulse Ox O2 Delivery O2 Flow Rate FiO2 04/14/20 06:00 97.7 71 17 121/69 (86) 98 Room Air 04/13/20 09:40 3 I&O- Last 24 Hours up to 6 AM 04/14/20 06:00 Intake Total 2310 ml Output Total 595 ml Balance 1715 ml Laboratory Data 24H LABS Laboratory Tests 2 04/14/20 05:48: Nucleated Red Blood Cells % (auto) 0.0, Anion Gap 6L, Glomerular Filtration Rate > 60.0, Estimated Mean Plasma Glucose 126H, Hemoglobin A1c 6.0, Calcium Level 8.7L, Magnesium Level 1.6L, Total Bilirubin 0.4, Aspartate Amino Transf (AST/SGOT) 46H, Alanine Aminotransferase (ALT/SGPT) 68, Alkaline Phosphatase 57, Total Protein 6.5, Albumin 3.2, Albumin/Globulin Ratio 1.0, Triglycerides Level 79, Total Cholesterol 112, LDL Cholesterol 50, Non-HDL Cholesterol (LDL + VLDL) 66, Total HDL Cholesterol 46, Cholesterol/HDL Ratio 2.434, Thyroid Stimulating Hormone (TSH) 1.950 CBC/BMP Laboratory Tests 04/14/20 05:48 DYLAN SIDDIQI MD Apr 14, 2020 07:22
[2020-04-14] MEDS ORDERED: MORPHINE 2 MG/ML 1ML VIAL (J2270) IV ONE (07:30)
[2020-04-14] MEDS ORDERED: PERCOCET 5MG/325MG TAB PO ONE (07:30)
[2020-04-14] MEDS: MIRALAX *UNIT DOSE* 17GM PACKET PO SCH (09:01)
[2020-04-14] MEDS: ONDANSETRON 4MG/2ML VIAL IV PRN (09:02)
[2020-04-14] MEDS: PANTOPRAZOLE 40MG TAB (PROTONIX) PO SCH (09:02)
[2020-04-14] MEDS: ATORVASTATIN 20 MG TAB PO SCH (09:02)
[2020-04-14] MEDS: MOM 30ML SUSPENSION UDC PO SCH (09:02)
[2020-04-14] MEDS: ASPIRIN 81 MG ENTERIC TAB PO SCH ×2 (09:02→20:07)
[2020-04-14] MEDS: METOPROLOL SUCC (TopROL XL) 50MG **XL** TAB PO SCH (09:04)
[2020-04-14 10:00] VITALS: O2SAT 97
[2020-04-14] MEDS ORDERED: MAG SULF 1GM/100ML (MAG RUN) 1 GM in IV 1 EA IV ONE (11:15)
[2020-04-14 14:00] VITALS: BP 126/63
[2020-04-14] MEDS ORDERED: PROMETHAZINE INJ 25 MG/ML VIAL (J2550) IV ONE (15:00)
[2020-04-14] MEDS ORDERED: PROMETHAZINE INJ 25 MG/ML VIAL (J2550) IV PRN (15:00)
[2020-04-14] MEDS: PERCOCET 5MG/325MG TAB PO PRN ×2 (15:14→20:08)
[2020-04-14] MEDS: LATANOPROST 0.005% OPHTH SOLN 2.5 ML OU SCH (20:08)
[2020-04-14 20:16] VITALS: BP 130/64
[2020-04-15 00:07] VITALS: O2SAT 95
[2020-04-15] MEDS: PERCOCET 5MG/325MG TAB PO PRN ×2 (02:38→08:56)
[2020-04-15 05:50] VITALS: BP 126/66
[2020-04-15 07:32] LABS: HEMATOCRIT 35.4 % (42.0-52.0); HEMOGLOBIN 11.5 g/dl (13.5-17.5); MEAN CORPUSCULAR HEMOGLOBIN 28.3 pg (27.0-33.0); MEAN CORPUSCULAR HGB CONC 32.5 g/dl (32.0-36.5); MEAN CORPUSCULAR VOLUME 87.2 fl (80.0-96.0); PLATELET COUNT, AUTOMATED 214 10^3/uL (150-450); RED BLOOD COUNT 4.06 10^6/uL (4.30-6.10); WHITE BLOOD COUNT 11.9 10^3/uL (4.0-10.0)
--- NOTE | 2020-04-15 07:38 | IPNPDOC ---
Date Seen The patient was seen on 04/15/20. Progress Note SUBJECTIVE: nauseated without vomiting all day yesterday into the early evening w/o relief w zofran, but improved with phenergan, and was able to sleep last night. feels rested this morning 2/10 pain scale today. no sob or fever. passing gas and had a small BM. OBJECTIVE: PHYSICAL EXAMINATION: VITAL SIGNS: Please see below. GENERAL APPEARANCE: Awake, alert, oriented 3. supine. speaks in full sentencesNo pallor or icterus HEENT: Slight conjunctival injection. moist mucous membranes. No JVD or thyromegaly. No jaundice. No cervical lymphadenopathy. No stridor. PERRL EOMI RESPIRATORY: Clear to auscultation. AEBE normal I:E ratio. No adventitious breath sounds. CARDIOVASCULAR: S1, S2, regular rate, rhythm. ABDOMEN: hyperactive bowel sounds, soft, nontender, nondistended. No rebound or guarding. No tetanus splenomegaly. No abdominal bruit noted EXTREMITIES: Left knee postop bandaged bilateral lower extremities with SCD. His skin color is pink, extremities are warm, dry, well perfused. No pitting edema. No clubbing, no cyanosis LABORATORY DATA: Please see below. Imaging study. X-ray of the left knee, pending official report ASSESSMENT/PLAN: 59-year-old male with history of hypertension, dyslipidemia, osteoarthritis of the left knee reflux disease, cataract surgery, cholecystectomy, Lasix surgery, presented for elective left knee replacement due to worsening pain with eng itation of ADLs, failed on outpatient conservative management. Patient otherwise denied any history of coronary artery disease, [place], CHF, diabetes, CVA in the past. . Postoperatively, patient has had no complications. Pain is well controlled on current medical medication. . He denies any fever, chills, weight gain, weight loss, rhinorrhea, sore throat, ear pain, ear discharge, shortness of breath, chest pain, pressure, tightness, lightheadedness, dizziness, near syncope, nausea, vomiting, diarrhea, abdominal pain, bright red blood per rectum, melena, black tarry stools, dysuria, urgency, frequency, flank pain, bilateral upper or lower extremity weakness, paresthesias, polydipsia, polyphagia. He otherwise has no other medical complaints. Hospitalist was asked to consult for medical management. Postoperative left total knee arthroplasty due to symptomatic osteoarthritis - dc today if pain is controlled. ortho managing pain control, dvt prophylaxis. Nausea,resolved -drug induced from opioids. no signs of bowel obstruction. PRN bowel regimen. did better with iv phenergan. Hypertension -currently controlled. Resumed metoprolol Glaucoma -On [place]atan Dyslipidemia -normal lipid profile and continued home medications Gastroesophageal reflux disease -Chronic Diet 2 g sodium, low-fat, low-cholesterol DVT prophylaxis Full code VS, I&O, 24H, Fishbone Vital Signs/I&O Vital Signs Date Time Temp Pulse Resp B/P (MAP) Pulse Ox O2 Delivery O2 Flow Rate FiO2 04/15/20 05:50 97.7 81 18 126/66 (86) 96 Room Air 04/13/20 09:40 3 I&O- Last 24 Hours up to 6 AM 04/15/20 06:00 Intake Total 2430 ml Output Total 500 ml Balance 1930 ml Laboratory Data 24H LABS Laboratory Tests 2 04/15/20 07:15: Nucleated Red Blood Cells % (auto) 0.0 CBC/BMP Laboratory Tests 04/15/20 07:15 DYLAN SIDDIQI MD Apr 15, 2020 07:37
[2020-04-15 08:06] LABS: ALT/SGPT 366 U/L (12-78); BILIRUBIN,TOTAL 0.8 MG/DL (0.2-1.0); BLOOD UREA NITROGEN 10 MG/DL (7-18); CALCIUM LEVEL 8.4 MG/DL (8.8-10.2); CARBON DIOXIDE LEVEL 30 MEQ/L (21-32); CHLORIDE LEVEL 102 MEQ/L (98-107); CREATININE FOR GFR 0.96 MG/DL (0.70-1.30); GLOMERULAR FILTRATION RATE > 60.0 (>49); GLUCOSE, FASTING 119 MG/DL (70-100); POTASSIUM SERUM 3.7 MEQ/L (3.5-5.1); SODIUM LEVEL 137 MEQ/L (136-145); TOTAL PROTEIN 6.9 GM/DL (6.4-8.2)
[2020-04-15] MEDS: ATORVASTATIN 20 MG TAB PO SCH (08:54)
[2020-04-15 08:55] VITALS: BP 126/66
[2020-04-15] MEDS: PANTOPRAZOLE 40MG TAB (PROTONIX) PO SCH (08:55)
[2020-04-15] MEDS: ASPIRIN 81 MG ENTERIC TAB PO SCH (08:55)
[2020-04-15] MEDS: METOPROLOL SUCC (TopROL XL) 50MG **XL** TAB PO SCH (08:55)
[2020-04-15] MEDS: MIRALAX *UNIT DOSE* 17GM PACKET PO SCH (08:56)
[2020-04-15] MEDS: MOM 30ML SUSPENSION UDC PO SCH (08:56)
== END 2020-04-15 12:15 | disposition home health service (06) | DRG 302 ==
LOC: M OR 07:10 → M MS5PR 13:45
PROVIDERS: ADMIT Orthopaedic Surgery; ATTEND Orthopaedic Surgery
PROC: 0SRD0J9 Replacement of Left Knee Joint with Synthetic Substitute, Cemented, Open Approach (ICD-10-PCS; principal; 2020-04-13 09:50)
DX: M17.12 Unilateral primary osteoarthritis, left knee (principal); I10 Essential (primary) hypertension; E78.5 Hyperlipidemia, unspecified; K21.9 Gastro-esophageal reflux disease without esophagitis; R26.89 Other abnormalities of gait and mobility; H40.9 Unspecified glaucoma; R11.0 Nausea; T40.2X5A Adverse effect of other opioids, initial encounter; Z87.891 Personal history of nicotine dependence; Z98.41 Cataract extraction status, right eye; Z90.49 Acquired absence of other specified parts of digestive tract; Z86.718 Personal history of other venous thrombosis and embolism

== ENCOUNTER → 2020-09-16 | Outpatient (REF) | payer BC ==
[~2020-09-16] MED LIST changes: +PERC5TAB12 PO
== END ==
LOC: M SFHCPLAZ 11:43
PROVIDERS: ATTEND Family Medicine
DX: E11.9 Type 2 diabetes mellitus without complications (principal); Z13.0 Encounter for screening for diseases of the blood and blood-forming organs and certain disorders involving the immune mechanism; Z53.8 Procedure and treatment not carried out for other reasons

== ENCOUNTER → 2020-09-20 | Outpatient (CLI) | payer BC ==
[2020-09-20 18:26] LABS: HEMATOCRIT 40.6 % (42.0-52.0); HEMOGLOBIN 13.2 g/dl (13.5-17.5); MEAN CORPUSCULAR HEMOGLOBIN 28.1 pg (27.0-33.0); MEAN CORPUSCULAR HGB CONC 32.5 g/dl (32.0-36.5); MEAN CORPUSCULAR VOLUME 86.6 fl (80.0-96.0); PLATELET COUNT, AUTOMATED 273 10^3/uL (150-450); RED BLOOD COUNT 4.69 10^6/uL (4.30-6.10); WHITE BLOOD COUNT 9.8 10^3/uL (4.0-10.0)
[2020-09-20 18:36] LABS: ALBUMIN 3.9 GM/DL (3.2-5.2); ALT/SGPT 30 U/L (12-78); BILIRUBIN,TOTAL 0.5 MG/DL (0.2-1.0); BLOOD UREA NITROGEN 18 MG/DL (7-18); CALCIUM LEVEL 9.5 MG/DL (8.8-10.2); CARBON DIOXIDE LEVEL 28 MEQ/L (21-32); CHLORIDE LEVEL 104 MEQ/L (98-107); CHOLESTEROL LEVEL 149 MG/DL (<200); CHOLESTEROL RISK RATIO 3.311 (<5); CREATININE FOR GFR 0.89 MG/DL (0.70-1.30); GLOMERULAR FILTRATION RATE > 60.0 (>49); GLUCOSE, FASTING 82 MG/DL (70-100); HDL CHOLESTEROL 45 MG/DL (>40); LDL CHOLESTEROL 79 MG/DL (<100); NON-HDL-C 104 MG/DL; POTASSIUM SERUM 4.2 MEQ/L (3.5-5.1); SODIUM LEVEL 138 MEQ/L (136-145); TOTAL PROTEIN 7.2 GM/DL (6.4-8.2); TRIGLYCERIDES LEVEL 124 MG/DL (<150)
[2020-09-20 18:41] LABS: MALB URINE SIEMENS 8.4 MG/L
[2020-09-20 20:15] LABS: HEMOGLOBIN A1c 5.7 %
== END ==
LOC: M LAB 16:54
PROVIDERS: ATTEND Student in an Organized Health Care Education/Training Program
DX: E11.9 Type 2 diabetes mellitus without complications (principal); Z13.0 Encounter for screening for diseases of the blood and blood-forming organs and certain disorders involving the immune mechanism

== ENCOUNTER → 2020-10-04 | Outpatient (CLI) | payer BC ==
[2020-10-04 16:50] LABS: BASO # 0.1 10^3/uL (0.0-0.2); BASO % 0.7 % (0.0-1.0); EOS # 0.3 10^3/uL (0.0-0.5); EOS % 3.3 % (0.0-3.0); HEMATOCRIT 40.6 % (42.0-52.0); LYMPH # 2.1 10^3/uL (1.5-5.0); LYMPH % 27.5 % (24.0-44.0); MEAN CORPUSCULAR HEMOGLOBIN 27.8 pg (27.0-33.0); MEAN CORPUSCULAR VOLUME 86.9 fl (80.0-96.0); MONO # 0.7 10^3/uL (0.0-0.8); MONO % 9.8 % (2.0-8.0); NEUTROPHILS # 4.4 10^3/uL (1.5-8.5); NEUTROPHILS % 58.3 % (36.0-66.0); PLATELET COUNT, AUTOMATED 279 10^3/uL (150-450); RED BLOOD COUNT 4.67 10^6/uL (4.30-6.10); WHITE BLOOD COUNT 7.5 10^3/uL (4.0-10.0)
[2020-10-04 17:22] LABS: FERRITIN 100 NG/ML (26-388); IRON (FE) 59 UG/DL (65-175); PERCENT SATURATION 22.1 % (19.7-50.0); TOTAL IRON BINDING CAPACITY 267 UG/DL (250-450)
[2020-10-04 17:26] LABS: VITAMIN B12 LEVEL 388 PG/ML
[2020-10-04 17:27] LABS: FOLATE > 24.0 NG/ML
== END ==
LOC: M LAB 15:33
PROVIDERS: ATTEND Student in an Organized Health Care Education/Training Program
DX: D64.9 Anemia, unspecified (principal)

== ENCOUNTER → 2020-10-15 | Outpatient (CLI) | payer BC | LOC: M LABSMTC 08:00 | PROVIDERS: ATTEND Anesthesiology | DX: Z01.812 Encounter for preprocedural laboratory examination (principal); Z20.822 Contact with and (suspected) exposure to COVID-19 ==

== ENCOUNTER 2020-10-20 10:45 | Day surgery (SDC) | payer BC ==
[~2020-10-20] VITALS: Ht 177.8 cm; Wt 83.4 kg
[~2020-10-20 10:45] MED LIST changes: +NS 1,000 ML IV ONE
[2020-10-20] MEDS ORDERED: LIDOCAINE 2% 100MG/5ML SDV (FOR ANES.) As Ordered ONE (12:29)
[2020-10-20] MEDS ORDERED: propofoL 200 MG/20 ML VIAL As Ordered ONE (12:29)
--- NOTE | 2020-10-20 12:33 | ROOR ---
Patient Name: Shelton Horta Procedure Date: 10/20/2020 12:15 PM Date of : 1960 Age: 60 Room: [facility] Gender: Male Note Status: Finalized Procedure: Colonoscopy Indications: Screening patient at increased risk: Family history of 1st-degree relative with colorectal cancer at age 60 years (or older) Providers: Hany Gold Jr, MD Referring MD: Luz Pulido Do Requesting Provider: Medicines: Propofol per Anesthesia Complications: No immediate complications. Procedure: Pre-Anesthesia Assessment: - Prior to the procedure, a History and Physical was performed, and patient medications and allergies were reviewed. The patient is competent. The risks and benefits of the procedure and the sedation options and risks were discussed with the patient. All questions were answered and informed consent was obtained. Patient identification and proposed procedure were verified by the physician and the nurse in the pre-procedure area and in the procedure room. Mental Status Examination: alert and oriented. Airway Examination: normal oropharyngeal airway and neck mobility. Respiratory Examination: clear to auscultation. CV Examination: normal. ASA Grade Assessment: II - A patient with mild systemic disease. After reviewing the risks and benefits, the patient was deemed in satisfactory condition to undergo the procedure. The anesthesia plan was to use moderate sedation / analgesia (conscious sedation). Immediately prior to administration of medications, the patient was re-assessed for adequacy to receive sedatives. The heart rate, respiratory rate, oxygen saturations, blood pressure, adequacy of pulmonary ventilation, and response to care were monitored throughout the procedure. The physical status of the patient was re-assessed after the procedure. The Colonoscope was introduced through the anus and advanced to the cecum, identified by appendiceal orifice and ileocecal valve. The colonoscopy was performed without difficulty. The patient tolerated the procedure well. The quality of the bowel preparation was adequate. Findings: The rectum, recto-sigmoid colon, descending colon, transverse colon, ascending colon, cecum, appendiceal orifice and ileocecal valve appeared normal. Multiple small and large-mouthed diverticula were found in the sigmoid colon. Impression: - The rectum, recto-sigmoid colon, descending colon, transverse colon, ascending colon, cecum, appendiceal orifice and ileocecal valve are normal. - Diverticulosis in the sigmoid colon. - No specimens collected. Recommendation: - Discharge patient to home (ambulatory). - Repeat colonoscopy in 10 years for screening purposes. Procedure Code(s): --- Professional --- 98597, Colonoscopy, flexible; diagnostic, including collection of specimen(s) by brushing or washing, when performed (separate procedure) Diagnosis Code(s): --- Professional --- Z80.0, Family history of malignant neoplasm of digestive organs K57.30, Diverticulosis of large intestine without perforation or abscess without bleeding CPT copyright 2019 [employer]. All rights reserved. The codes documented in this report are preliminary and upon hat brim curler review may be revised to meet current compliance requirements. Hany oGld MD Hany Gold Jr, MD 10/20/2020 12:33:18 PM Electronically signed by Hany Gold Jr, MD Number of Addenda: 0 Note Initiated On: 10/20/2020 12:15 PM Estimated Blood Loss: Estimated blood loss: none.
[2020-10-20 12:55] VITALS: BP 122/64
== END 2020-10-20 12:55 | disposition home or self-care (01) ==
LOC: M OPP 10:45
PROVIDERS: ATTEND Surgery
DX: Z12.11 Encounter for screening for malignant neoplasm of colon (principal); Z80.0 Family history of malignant neoplasm of digestive organs; K57.30 Diverticulosis of large intestine without perforation or abscess without bleeding; Z79.82 Long term (current) use of aspirin; Z79.899 Other long term (current) drug therapy; Z86.718 Personal history of other venous thrombosis and embolism; Z87.891 Personal history of nicotine dependence

== ENCOUNTER 2021-02-15 10:26 | Emergency (ER) | payer BC ==
[~2021-02-15] VITALS: Ht 177.8 cm; Wt 84.1 kg
[~2021-02-15 10:26] MED LIST changes: -NS 1,000 ML IV ONE
[2021-02-15] MEDS ORDERED: PRED10TA2 (10:34)
[2021-02-15] MEDS ORDERED: NS 1,000 ML IV ONE (13:05)
[2021-02-15] MEDS ORDERED: ONDANSETRON 4MG/2ML VIAL IV ONE (13:05)
[2021-02-15] MEDS ORDERED: diphenhydrAMINE 50MG/ML VIAL (J1200) IV STA (13:05)
[2021-02-15 13:52] LABS: BASO % 0.3 % (0.0-1.0); HEMATOCRIT 41.3 % (42.0-52.0); HEMOGLOBIN 13.6 g/dl (13.5-17.5); LYMPH # 0.7 10^3/uL (1.5-5.0); LYMPH % 5.8 % (24.0-44.0); MEAN CORPUSCULAR HEMOGLOBIN 28.7 pg (27.0-33.0); MEAN CORPUSCULAR HGB CONC 32.9 g/dl (32.0-36.5); MEAN CORPUSCULAR VOLUME 87.1 fl (80.0-96.0); MONO # 0.2 10^3/uL (0.0-0.8); MONO % 2.1 % (2.0-8.0); NEUTROPHILS # 10.4 10^3/uL (1.5-8.5); NEUTROPHILS % 90.8 % (36.0-66.0); PLATELET COUNT, AUTOMATED 274 10^3/uL (150-450); RED BLOOD COUNT 4.74 10^6/uL (4.30-6.10); WHITE BLOOD COUNT 11.4 10^3/uL (4.0-10.0)
[2021-02-15 14:29] LABS: ALBUMIN 4.2 GM/DL (3.2-5.2); BILIRUBIN,DIRECT 0.1 MG/DL (0.0-0.2); BILIRUBIN,TOTAL 0.4 MG/DL (0.2-1.0); TOTAL PROTEIN 7.9 GM/DL (6.4-8.2)
[2021-02-15 14:52] VITALS: BP 162/75
== END 2021-02-15 14:54 | disposition home or self-care (01) ==
LOC: M ED 10:26
DX: R11.2 Nausea with vomiting, unspecified (principal); R25.1 Tremor, unspecified; T50.995A Adverse effect of other drugs, medicaments and biological substances, initial encounter; Y92.89 Other specified places as the place of occurrence of the external cause; I10 Essential (primary) hypertension; Z79.899 Other long term (current) drug therapy; Z79.82 Long term (current) use of aspirin
CPT/HCPCS: 80047; 80076; 83690; 85025; 96361; 96374; 96375; 99284; J1200; J2405

== ENCOUNTER → 2021-03-15 | Outpatient (REF) | payer BC ==
[~2021-03-15] MED LIST changes: +PRED10TA2
== END ==
LOC: M SFHCPLAZ 09:41
PROVIDERS: ATTEND Family Medicine
DX: Z53.9 Procedure and treatment not carried out, unspecified reason (principal)

== ENCOUNTER → 2021-03-16 | Outpatient (CLI) | payer BC ==
[2021-03-16 09:34] LABS: APPEARANCE, URINE CLEAR (CLEAR); BACTERIA, URINE AUTO NEGATIVE (NEGATIVE); BILIRUBIN, URINE AUTO NEGATIVE (NEGATIVE); BLOOD, URINE BLOOD NEGATIVE (NEGATIVE); COLOR, URINE STRAW (YELLOW); GLUCOSE, URINE (UA) AUTO NEGATIVE (NEGATIVE); KETONE, URINE AUTO NEGATIVE (NEGATIVE); LEUKOCYTE ESTERASE, URINE AUTO NEGATIVE (NEGATIVE); NITRITE, URINE AUTO NEGATIVE (NEGATIVE); PROTEIN, URINE AUTO NEGATIVE (NEGATIVE); RBC, URINE AUTO 0 /HPF (0-3); SPECIFIC GRAVITY URINE AUTO 1.004 (1.002-1.035); SQUAMOUS EPITHELIAL CELL UR AU 0 /HPF (0-6); UROBILINOGEN, URINE AUTO 0.2 mg/dL (0.0-2.0); WBC, URINE AUTO 0 /HPF (0-3)
[2021-03-16 10:00] LABS: HEMOGLOBIN A1c 5.8 %
== END ==
LOC: M LAB 08:11
PROVIDERS: ATTEND Student in an Organized Health Care Education/Training Program
DX: R82.90 Unspecified abnormal findings in urine (principal); E11.9 Type 2 diabetes mellitus without complications

== ENCOUNTER → 2021-07-18 | Outpatient (REF) | payer OTHER, BC ==
[2021-07-19 10:35] LABS: APPEARANCE, URINE CLEAR (CLEAR); BACTERIA, URINE AUTO NEGATIVE (NEGATIVE); BILIRUBIN, URINE AUTO NEGATIVE (NEGATIVE); BLOOD, URINE BLOOD 1+ (NEGATIVE); COLOR, URINE STRAW (YELLOW); GLUCOSE, URINE (UA) AUTO NEGATIVE (NEGATIVE); KETONE, URINE AUTO NEGATIVE (NEGATIVE); LEUKOCYTE ESTERASE, URINE AUTO NEGATIVE (NEGATIVE); MUCUS, URINE SMALL (NEGATIVE); NITRITE, URINE AUTO NEGATIVE (NEGATIVE); PROTEIN, URINE AUTO NEGATIVE (NEGATIVE); RBC, URINE AUTO 1 /HPF (0-3); SPECIFIC GRAVITY URINE AUTO 1.012 (1.002-1.035); SQUAMOUS EPITHELIAL CELL UR AU 0 /HPF (0-6); UROBILINOGEN, URINE AUTO 0.2 mg/dL (0.0-2.0); WBC, URINE AUTO 0 /HPF (0-3)
== END ==
LOC: M SFHCPLAZ 09:58
PROVIDERS: ATTEND Student in an Organized Health Care Education/Training Program
DX: R31.29 Other microscopic hematuria (principal)

== ENCOUNTER → 2021-11-22 | Outpatient (CLI) | payer OTHER ==
[2021-11-22 18:48] LABS: INR 0.93; PROTHROMBIN TIME 12.9 SECONDS (12.7-14.5)
[2021-11-22 18:49] LABS: PARTIAL THROMBOPLASTIN TIME 37.3 SECONDS (25.9-37.0)
[2021-11-22 19:13] LABS: ALBUMIN 4.2 GM/DL (3.2-5.2); ALT/SGPT 42 U/L (12-78); BILIRUBIN,TOTAL 0.5 MG/DL (0.2-1.0); BLOOD UREA NITROGEN 21 MG/DL (7-18); CALCIUM LEVEL 9.7 MG/DL (8.8-10.2); CARBON DIOXIDE LEVEL 27 MEQ/L (21-32); CHLORIDE LEVEL 106 MEQ/L (98-107); CREATININE FOR GFR 1.23 MG/DL (0.70-1.30); FERRITIN 70 NG/ML (26-388); GLOMERULAR FILTRATION RATE > 60.0 (>49); GLUCOSE, FASTING 92 MG/DL (70-100); IRON (FE) 71 UG/DL (65-175); PERCENT SATURATION 22.7 % (19.7-50.0); POTASSIUM SERUM 4.9 MEQ/L (3.5-5.1); SODIUM LEVEL 141 MEQ/L (136-145); TOTAL IRON BINDING CAPACITY 313 UG/DL (250-450); TOTAL PROTEIN 7.4 GM/DL (6.4-8.2)
[2021-11-22 19:21] LABS: HEMOGLOBIN A1c 5.9 %
[2021-11-22 19:35] LABS: MALB URINE SIEMENS 7.5 MG/L; MAU/CREAT RATIO 4.1 MCG/MG (0.0-30.0)
[2021-11-22 19:37] LABS: HEPATITIS B SURFACE ANTIGEN NEGATIVE (NEGATIVE)
[2021-11-22 20:04] LABS: HEPATITIS C VIRUS ABY INDEX 0.2 INDEX (<0.8)
[2021-11-22 20:05] LABS: HEPATITIS B CORE ANTIBODY IGM NEGATIVE (NEGATIVE)
== END ==
LOC: M PLALAB 14:48
PROVIDERS: ATTEND Student in an Organized Health Care Education/Training Program
DX: K76.0 Fatty (change of) liver, not elsewhere classified (principal); E11.9 Type 2 diabetes mellitus without complications

== ENCOUNTER → 2021-12-01 | Outpatient (CLI) | payer OTHER | LOC: M RAD 06:23 | PROVIDERS: ATTEND Student in an Organized Health Care Education/Training Program | DX: K76.0 Fatty (change of) liver, not elsewhere classified (principal) ==

== ENCOUNTER → 2022-03-16 | Outpatient (CLI) | payer OTHER ==
[2022-03-16 13:36] LABS: HEMOGLOBIN A1c 5.9 %
[2022-03-16 14:03] LABS: BLOOD UREA NITROGEN 16 MG/DL (7-18); CALCIUM LEVEL 9.3 MG/DL (8.8-10.2); CARBON DIOXIDE LEVEL 30 MEQ/L (21-32); CHLORIDE LEVEL 106 MEQ/L (98-107); CREATININE FOR GFR 0.84 MG/DL (0.70-1.30); GLOMERULAR FILTRATION RATE > 60.0 (>49); GLUCOSE, FASTING 95 MG/DL (70-100); POTASSIUM SERUM 4.6 MEQ/L (3.5-5.1); SODIUM LEVEL 139 MEQ/L (136-145)
== END ==
LOC: M PLALAB 09:09
PROVIDERS: ATTEND Student in an Organized Health Care Education/Training Program
DX: R73.03 Prediabetes (principal); I10 Essential (primary) hypertension

== ENCOUNTER → 2022-05-24 | Outpatient (CLI) | payer OTHER ==
[2022-05-24 18:32] LABS: BASO # 0.1 10^3/uL (0.0-0.2); BASO % 0.6 % (0.0-1.0); EOS # 0.2 10^3/uL (0.0-0.5); EOS % 1.9 % (0.0-3.0); HEMATOCRIT 41.3 % (42.0-52.0); HEMOGLOBIN 13.4 g/dl (13.5-17.5); LYMPH # 1.8 10^3/uL (1.5-5.0); LYMPH % 20.1 % (24.0-44.0); MEAN CORPUSCULAR HGB CONC 32.4 g/dl (32.0-36.5); MEAN CORPUSCULAR VOLUME 89.4 fl (80.0-96.0); MONO # 0.7 10^3/uL (0.0-0.8); MONO % 7.8 % (2.0-8.0); NEUTROPHILS # 6.1 10^3/uL (1.5-8.5); NEUTROPHILS % 69.3 % (36.0-66.0); RED BLOOD COUNT 4.62 10^6/uL (4.30-6.10); WHITE BLOOD COUNT 8.8 10^3/uL (4.0-10.0)
[2022-05-24 18:45] LABS: ALBUMIN 3.9 G/DL (3.2-5.2); ALKALINE PHOSPHATASE 69 U/L (46-116); ALT/SGPT 40 U/L (7.0-40); AST/SGOT 33 U/L (<34); BILIRUBIN,TOTAL 0.3 MG/DL (0.3-1.2); BLOOD UREA NITROGEN 13 MG/DL (9-23); CALCIUM LEVEL 9.5 MG/DL (8.3-10.6); CARBON DIOXIDE LEVEL 27 MMOL/L (20-31); CHLORIDE LEVEL 104 MMOL/L (98-107); CREATININE FOR GFR 0.89 MG/DL (0.70-1.30); GLOMERULAR FILTRATION RATE > 60.0 (>49); GLUCOSE, FASTING 88 MG/DL (74-106); POTASSIUM SERUM 4.2 MMOL/L (3.5-5.1); SODIUM LEVEL 139 MMOL/L (136-145); TOTAL PROTEIN 6.9 G/DL (5.7-8.2)
[2022-05-24 19:47] LABS: PLATELET COUNT, AUTOMATED 203 10^3/uL (150-450)
== END ==
LOC: M PLALAB 15:12
PROVIDERS: ATTEND Student in an Organized Health Care Education/Training Program
DX: N50.89 Other specified disorders of the male genital organs (principal)
CPT/HCPCS: 36415; 80053; 85025; G0103

== ENCOUNTER → 2022-06-05 | Outpatient (CLI) | payer OTHER, SELFPAY | LOC: M RAD 09:08 | PROVIDERS: ATTEND Student in an Organized Health Care Education/Training Program | DX: N50.89 Other specified disorders of the male genital organs (principal); N43.3 Hydrocele, unspecified; N50.3 Cyst of epididymis ==

== ENCOUNTER → 2022-12-24 | Outpatient (CLI) | payer OTHER ==
[2022-12-24 15:30] LABS: BLOOD UREA NITROGEN 16 MG/DL (9-23); CALCIUM LEVEL 9.3 MG/DL (8.3-10.6); CARBON DIOXIDE LEVEL 27 MMOL/L (20-31); CHLORIDE LEVEL 105 MMOL/L (98-107); GLOMERULAR FILTRATION RATE > 60.0 (>49); GLUCOSE, FASTING 103 MG/DL (74-106); POTASSIUM SERUM 4.7 MMOL/L (3.5-5.1); SODIUM LEVEL 142 MMOL/L (136-145)
== END ==
LOC: M PLALAB 12:09
PROVIDERS: ATTEND Student in an Organized Health Care Education/Training Program
DX: I10 Essential (primary) hypertension (principal)

== ENCOUNTER → 2023-12-12 | Outpatient (CLI) | payer MEDICARE ==
[2023-12-12 10:04] LABS: HEMATOCRIT 38.8 % (42.0-52.0); HEMOGLOBIN 12.6 g/dl (13.5-17.5); MEAN CORPUSCULAR HEMOGLOBIN 29.1 pg (27.0-33.0); MEAN CORPUSCULAR HGB CONC 32.5 g/dl (32.0-36.5); MEAN CORPUSCULAR VOLUME 89.6 fl (80.0-96.0); PLATELET COUNT, AUTOMATED 257 10^3/uL (150-450); RED BLOOD COUNT 4.33 10^6/uL (4.30-6.10); WHITE BLOOD COUNT 8.1 10^3/uL (4.0-10.0)
[2023-12-12 10:26] LABS: BLOOD UREA NITROGEN 18 MG/DL (9-23); CALCIUM LEVEL 9.5 MG/DL (8.3-10.6); CARBON DIOXIDE LEVEL 30 MMOL/L (20-31); CHLORIDE LEVEL 106 MMOL/L (98-107); CHOLESTEROL LEVEL 142 MG/DL (<200); CHOLESTEROL RISK RATIO 3.54 (<5); CREATININE FOR GFR 0.96 MG/DL (0.70-1.30); GLOMERULAR FILTRATION RATE > 60.0 (>49); GLUCOSE, FASTING 104 MG/DL (74-106); HDL CHOLESTEROL 40.1 MG/DL (>40); LDL CHOLESTEROL 81.9 MG/DL (<100); NON-HDL-C 101.9 MG/DL; POTASSIUM SERUM 4.9 MMOL/L (3.5-5.1); SODIUM LEVEL 141 MMOL/L (136-145); TRIGLYCERIDES LEVEL 100 MG/DL (<150)
[2023-12-12 10:40] LABS: HEMOGLOBIN A1c 5.6 % (4.0-6.0)
== END ==
LOC: M PLALAB 07:17
PROVIDERS: ATTEND Student in an Organized Health Care Education/Training Program
DX: I10 Essential (primary) hypertension (principal); R73.03 Prediabetes; E78.5 Hyperlipidemia, unspecified

== ENCOUNTER → 2023-12-19 | Outpatient (CLI) | payer MEDICARE ==
[2023-12-19 10:33] LABS: FREE T4 0.85 NG/DL (0.89-1.76)
[2023-12-19 10:34] LABS: THYROID STIMULATING HORMONE 4.792 uIU/ML (0.55-4.78)
[2023-12-19 10:35] LABS: FOLATE 14.7 NG/ML (>5.4)
== END ==
LOC: M PLALAB 07:38
PROVIDERS: ATTEND Student in an Organized Health Care Education/Training Program
DX: R25.1 Tremor, unspecified (principal)

== ENCOUNTER → 2024-01-15 | Outpatient (CLI) | payer MEDICARE ==
[2024-01-15 10:20] LABS: FREE T4 1.03 NG/DL (0.89-1.76)
[2024-01-15 10:21] LABS: THYROID STIMULATING HORMONE 6.121 uIU/ML (0.55-4.78)
== END ==
LOC: M PLALAB 08:00
PROVIDERS: ATTEND Student in an Organized Health Care Education/Training Program
DX: Z13.29 Encounter for screening for other suspected endocrine disorder (principal); Z79.899 Other long term (current) drug therapy

== ENCOUNTER → 2024-02-07 | Outpatient (CLI) | payer MEDICARE ==
[2024-02-07 10:32] LABS: CHOLESTEROL RISK RATIO 3.19 (<5); HDL CHOLESTEROL 45.1 MG/DL (>40); LDL CHOLESTEROL 78.9 MG/DL (<100); NON-HDL-C 98.9 MG/DL
[2024-02-07 10:34] LABS: BASO # 0.1 10^3/uL (0.0-0.2); EOS # 0.3 10^3/uL (0.0-0.5); EOS % 4.7 % (0.0-3.0); HEMATOCRIT 39.9 % (42.0-52.0); HEMOGLOBIN 13.1 g/dl (13.5-17.5); LYMPH # 2.1 10^3/uL (1.5-5.0); LYMPH % 33.8 % (24.0-44.0); MEAN CORPUSCULAR HGB CONC 32.8 g/dl (32.0-36.5); MEAN CORPUSCULAR VOLUME 88.5 fl (80.0-96.0); MONO # 0.6 10^3/uL (0.0-0.8); NEUTROPHILS # 3.2 10^3/uL (1.5-8.5); NEUTROPHILS % 51.2 % (36.0-66.0); PLATELET COUNT, AUTOMATED 253 10^3/uL (150-450); RED BLOOD COUNT 4.51 10^6/uL (4.30-6.10); WHITE BLOOD COUNT 6.2 10^3/uL (4.0-10.0)
[2024-02-07 10:36] LABS: FREE T4 0.99 NG/DL (0.89-1.76); THYROID STIMULATING HORMONE 3.665 uIU/ML (0.55-4.78)
== END ==
LOC: M PLALAB 07:48
DX: E78.5 Hyperlipidemia, unspecified (principal); D64.9 Anemia, unspecified; Z13.29 Encounter for screening for other suspected endocrine disorder

== ENCOUNTER → 2024-06-12 | Outpatient (CLI) | payer MEDICARE ==
[2024-06-12 10:47] LABS: BASO # 0.1 10^3/uL (0.0-0.2); BASO % 0.8 % (0.0-1.0); EOS # 0.2 10^3/uL (0.0-0.5); EOS % 2.4 % (0.0-3.0); HEMATOCRIT 39.6 % (42.0-52.0); HEMOGLOBIN 13.1 g/dl (13.5-17.5); LYMPH # 2.1 10^3/uL (1.5-5.0); LYMPH % 34.2 % (24.0-44.0); MEAN CORPUSCULAR HGB CONC 33.1 g/dl (32.0-36.5); MEAN CORPUSCULAR VOLUME 87.8 fl (80.0-96.0); MONO # 0.6 10^3/uL (0.0-0.8); MONO % 10.2 % (2.0-8.0); NEUTROPHILS # 3.3 10^3/uL (1.5-8.5); NEUTROPHILS % 52.1 % (36.0-66.0); PLATELET COUNT, AUTOMATED 256 10^3/uL (150-450); RED BLOOD COUNT 4.51 10^6/uL (4.30-6.10); WHITE BLOOD COUNT 6.3 10^3/uL (4.0-10.0)
[2024-06-12 10:49] LABS: ALBUMIN 3.7 G/DL (3.2-5.2); ALKALINE PHOSPHATASE 54 U/L (40-129); ALT/SGPT 30 U/L (7.0-40); AST/SGOT 19 U/L (<34); BILIRUBIN,TOTAL 0.5 MG/DL (0.3-1.2); BLOOD UREA NITROGEN 15 MG/DL (9-23); CALCIUM LEVEL 9.6 MG/DL (8.3-10.6); CARBON DIOXIDE LEVEL 29 MMOL/L (20-31); CHLORIDE LEVEL 105 MMOL/L (98-107); CHOLESTEROL LEVEL 134 MG/DL (<200); CHOLESTEROL RISK RATIO 3.13 (<5); CREATININE FOR GFR 0.98 MG/DL (0.70-1.30); GLOMERULAR FILTRATION RATE > 60.0 (>49); GLUCOSE, FASTING 97 MG/DL (74-106); HDL CHOLESTEROL 42.8 MG/DL (>40); IRON (FE) 88 UG/DL (65-175); LDL CHOLESTEROL 70.6 MG/DL (<100); NON-HDL-C 91.2 MG/DL; POTASSIUM SERUM 4.4 MMOL/L (3.5-5.1); SODIUM LEVEL 142 MMOL/L (136-145); TRIGLYCERIDES LEVEL 103 MG/DL (<150)
[2024-06-12 11:27] LABS: HEMOGLOBIN A1c 5.6 % (4.0-6.0)
== END ==
LOC: M PLALAB 08:02
DX: Z00.00 Encounter for general adult medical examination without abnormal findings (principal); D64.9 Anemia, unspecified; Z79.899 Other long term (current) drug therapy

== ENCOUNTER → 2024-07-22 | Outpatient (REF) | payer MEDICARE | LOC: M SFHCDERM 17:25 | PROVIDERS: ATTEND Physician Assistant | DX: D23.71 Other benign neoplasm of skin of right lower limb, including hip (principal) ==

== ENCOUNTER → 2024-08-06 | Outpatient (REF) | payer MEDICARE | LOC: M SFHCPLAZ 19:01 | PROVIDERS: ATTEND Family Medicine | DX: D64.9 Anemia, unspecified (principal) ==

== ENCOUNTER → 2025-02-22 | Outpatient (CLI) | payer MEDICARE ==
[2025-02-22 16:09] LABS: PLATELET COUNT, AUTOMATED 251 10^3/uL (150-450)
[2025-02-22 16:13] LABS: IRON (FE) 81 UG/DL (65-175); PERCENT SATURATION 28.0 % (19.7-50.0)
[2025-02-22 16:14] LABS: ALT/SGPT 31 U/L (7.0-40); AST/SGOT 26 U/L (<34); CALCIUM LEVEL 8.8 MG/DL (8.3-10.6); CARBON DIOXIDE LEVEL 27 MMOL/L (20-31); CHLORIDE LEVEL 105 MMOL/L (98-107); CREATININE FOR GFR 0.89 MG/DL (0.70-1.30); GLOMERULAR FILTRATION RATE > 90.0 (>49); POTASSIUM SERUM 4.5 MMOL/L (3.5-5.1); SODIUM LEVEL 139 MMOL/L (136-145)
== END ==
LOC: M PLALAB 10:45
DX: D64.9 Anemia, unspecified (principal); I10 Essential (primary) hypertension

== ENCOUNTER → 2025-04-06 | Outpatient (CLI) | payer MEDICARE ==
[2025-04-06 13:52] LABS: CHOLESTEROL LEVEL 149.0 MG/DL (<200); CHOLESTEROL RISK RATIO 3.43 (<5); LDL CHOLESTEROL 84.4 MG/DL (<100); NON-HDL-C 105.6 MG/DL; TRIGLYCERIDES LEVEL 106.0 MG/DL (<150)
[2025-04-06 14:03] LABS: ESTIMATED AVERAGE GLUCOSE 128.0 MG/DL (60-110)
== END ==
LOC: M PLALAB 09:33
DX: E11.9 Type 2 diabetes mellitus without complications (principal); E78.5 Hyperlipidemia, unspecified